=== PATIENT | female | born 1955 | race Caucasian/White ===

== ENCOUNTER 2019-01-24 13:44 | Outpatient (CLI) | payer BC ==
[~2019-01-24 13:44] MED LIST: LOPE2CAP PO; ONDA4TAB6 PO; ONDA8TAB6 PO; PANT-47 PO
[2019-01-24 14:18] LABS: BASOPHILS # (AUTO) 0.1 X10'3 (0-0.2); BASOPHILS % (AUTO) 1.1 % (0-1); EOSINOPHILS # (AUTO) 0.6 X10'3 (0-0.9); EOSINOPHILS % (AUTO) 6.6 % (0-6); HEMATOCRIT 41.2 % (35.0-45.0); LYMPHOCYTES # (AUTO) 2.8 X10'3 (1.1-4.8); LYMPHOCYTES % (AUTO) 33.1 % (21-51); MEAN CORPUSCULAR HEMOGLOBIN 30.4 PG (27.0-31.0); MEAN CORPUSCULAR HGB CONC 33.9 g/dL (33.0-36.5); MEAN CORPUSCULAR VOLUME 89.8 FL (78-98); MEAN PLATELET VOLUME 8.1 FL (7.4-10.4); MONOCYTES # (AUTO) 0.5 X10'3 (0-0.9); MONOCYTES % (AUTO) 6.3 % (2-12); NEUTROPHILS # (AUTO) 4.5 X10'3 (1.8-7.7); NEUTROPHILS % (AUTO) 52.9 % (42-75); PLATELET COUNT 294 X10'3 (140-440); RED BLOOD COUNT 4.59 X10'6 (4.20-5.60); RED CELL DISTRIBUTION WIDTH 14.7 % (11.5-14.5); WHITE BLOOD COUNT 8.5 X10'3 (4.5-11.0)
[2019-01-24 14:34] LABS: ALANINE AMINOTRANSFERASE 34 U/L (12-78); ALBUMIN 3.9 G/DL (3.4-5.0); ALKALINE PHOSPHATASE 108 IU/L (46-116); ANION GAP 12 (8-16); ASPARTATE AMINO TRANSFERASE 20 U/L (10-37); BILIRUBIN,TOTAL 0.3 MG/DL (0.1-1.0); BLOOD UREA NITROGEN 19 MG/DL (7-18); BUN/CREATININE RATIO 28.8 (6.6-38.0); CALCIUM 9.3 MG/DL (8.5-10.1); CHLORIDE 104 MMOL/L (99-107); CREATININE 0.66 MG/DL (0.40-0.90); GLUCOSE 131 MG/DL (70-104); SODIUM 141 MMOL/L (135-145); TOTAL CARBON DIOXIDE 24.8 MMOL/L (24-32); eGFR 90 ML/MIN
[2019-01-24 14:37] LABS: PARTIAL THROMBOPLASTIN TIME 25 SECONDS (22-32)
[2019-01-24 15:59] LABS: PLATELET FUNCTION (ADP) 71 SECONDS (63-104)
== END 2019-01-24 23:59 | disposition home or self-care (01) ==
LOC: LAB 13:44
PROVIDERS: ATTEND Otolaryngology
DX: D69.1 Qualitative platelet defects (principal); I10 Essential (primary) hypertension; M19.90 Unspecified osteoarthritis, unspecified site
CPT/HCPCS: 36415; 80053; 85025; 85576; 85610; 85730

== ENCOUNTER 2021-06-07 08:37 | Emergency (ER) | payer BC ==
[~2021-06-07] VITALS: Ht 152.4 cm; Wt 90.0 kg
[2021-06-07 09:07] LABS: BASOPHILS % (AUTO) 0.4 % (0-1); EOSINOPHILS # (AUTO) 0.4 X10'3 (0-0.9); EOSINOPHILS % (AUTO) 3.1 % (0-6); HEMATOCRIT 41.3 % (35.0-45.0); LYMPHOCYTES # (AUTO) 2.7 X10'3 (1.1-4.8); LYMPHOCYTES % (AUTO) 23.8 % (21-51); MEAN CORPUSCULAR HEMOGLOBIN 29.7 PG (27.0-31.0); MEAN CORPUSCULAR HGB CONC 33.8 g/dL (33.0-36.5); MEAN CORPUSCULAR VOLUME 87.8 FL (78-98); MONOCYTES % (AUTO) 9.1 % (2-12); NEUTROPHILS # (AUTO) 7.2 X10'3 (1.8-7.7); NEUTROPHILS % (AUTO) 63.6 % (42-75); PLATELET COUNT 301 X10'3 (140-440); RED CELL DISTRIBUTION WIDTH 14.2 % (11.5-14.5); WHITE BLOOD COUNT 11.3 X10'3 (4.5-11.0)
[2021-06-07 09:16] LABS: ALANINE AMINOTRANSFERASE 45 U/L (12-78); ALBUMIN 3.7 G/DL (3.4-5.0); ALBUMIN/GLOBULIN RATIO 0.9 (1.1-1.5); ALKALINE PHOSPHATASE 105 IU/L (46-116); ANION GAP 9 (8-16); ASPARTATE AMINO TRANSFERASE 30 U/L (10-37); BILIRUBIN,TOTAL 0.3 MG/DL (0.1-1.0); BLOOD UREA NITROGEN 22 MG/DL (7-18); BUN/CREATININE RATIO 39.3 (6.6-38.0); CALCIUM 8.7 MG/DL (8.5-10.1); CHLORIDE 109 MMOL/L (99-107); CREATININE 0.56 MG/DL (0.40-0.90); GLUCOSE 144 MG/DL (70-104); LIPASE 65 U/L (73-393); POTASSIUM 3.2 MMOL/L (3.5-5.1); SODIUM 141 MMOL/L (135-145); TOTAL CARBON DIOXIDE 22.6 MMOL/L (24-32); TOTAL PROTEIN 7.7 G/DL (6.4-8.2); eGFR > 90 ML/MIN
[2021-06-07 09:20] LABS: COLOR,URINE YELLOW (Yellow); GLUCOSE, URINE NEGATIVE (Neg); KETONES,URINE NEGATIVE (Neg); LEUKOCYTE ESTERASE ,URINE SMALL (Neg); NITRITES, URINE NEGATIVE (Neg); OCCULT BLOOD,URINE SMALL (Neg); PH,URINE 5.5 (4.8-8.0); PROTEIN,URINE TRACE mg/dl (Neg); UROBILINOGEN,URINE 0.2 E.U/dL (0.2-1.0)
[2021-06-07 09:21] LABS: URINE HCG NEGATIVE (NEG)
[2021-06-07 09:25] LABS: CLARITY,URINE SLIGHTLY CLOUDY (Clear); UA COLLECTION TYPE CLN CATCH MIDSTREAM
[2021-06-07] MEDS ORDERED: ondansetron/PF 4mg/2ml inj IV ONE (09:25)
[2021-06-07] MEDS ORDERED: normal saline 1000ML IV soln IVB ONE (09:25)
[2021-06-07 09:27] LABS: RBC,URINE 0-2 /HPF (0-2); WBC,URINE 20-30 /HPF (0-4)
[2021-06-07 09:28] LABS: BACTERIA,URINE 1+ /HPF (Neg); MUCUS STRANDS FEW /LPF (Neg)
[2021-06-07 09:29] LABS: SQUAMOUS EPITHELIAL CELL,UR MANY /LPF (FEW)
[2021-06-07] MEDS ORDERED: iohexol 300mg/ml 100ml inj. ONE (09:32)
[2021-06-07] MEDS ORDERED: ONDA-103 PO (10:35)
[2021-06-07 11:48] VITALS: BP 126/50
== END 2021-06-07 11:48 | disposition home or self-care (01) ==
LOC: ER 08:40
DX: R19.7 Diarrhea, unspecified (principal); R10.84 Generalized abdominal pain; R11.2 Nausea with vomiting, unspecified; I10 Essential (primary) hypertension
CPT/HCPCS: 36415; 74177; 80053; 81001; 81025; 83690; 85025; 96361; 96374; 99285; J2405; J7030; Q9967

== ENCOUNTER 2022-02-02 12:41 | Emergency (ER) | payer BC, SELFPAY ==
[~2022-02-02] VITALS: Ht 152.4 cm; Wt 108.0 kg
[~2022-02-02 12:41] MED LIST changes: +ONDA-103 PO
[2022-02-02 13:52] VITALS: BP 155/81
[2022-02-02] MEDS ORDERED: HYDROcodone/acetaminophen 10/325mg tab PO ONE (16:46)
[2022-02-02] MEDS ORDERED: ketorolac trometh inj. 60 MG/2 ML VIAL IM ONE (16:48)
[2022-02-02] MEDS ORDERED: HYDR-3972 PO (16:48)
[2022-02-02] MEDS ORDERED: IBUP-1986 PO (16:48)
[2022-02-02] MEDS ORDERED: ONDA4TAB12 PO (17:19)
[2022-02-02] MEDS ORDERED: ondansetron 4mg rapidly disintigrating tab PO ONE (17:20)
== END 2022-02-02 18:24 | disposition home or self-care (01) ==
LOC: ER 12:41
DX: Z04.3 Encounter for examination and observation following other accident (principal); R07.89 Other chest pain; I10 Essential (primary) hypertension; M19.90 Unspecified osteoarthritis, unspecified site; Z90.49 Acquired absence of other specified parts of digestive tract; Z98.51 Tubal ligation status; W18.2XXA Fall in (into) shower or empty bathtub, initial encounter; Y93.89 Activity, other specified; Y92.89 Other specified places as the place of occurrence of the external cause; Y99.8 Other external cause status
CPT/HCPCS: 71101; 96372; 99284; J1885

== ENCOUNTER 2022-08-30 13:17 | Emergency (ER) | payer BC, SELFPAY ==
[~2022-08-30] VITALS: Ht 152.4 cm; Wt 108.6 kg
[~2022-08-30 13:17] MED LIST changes: +IBUP-1986 PO; +ONDA4TAB12 PO
[2022-08-30 13:20] VITALS: BP 138/72
[2022-08-30] MEDS ORDERED: METH4TAB81 PO (14:21)
[2022-08-30] MEDS ORDERED: TRIA15CR61 TP (14:21)
== END 2022-08-30 14:31 | disposition home or self-care (01) ==
LOC: ER 13:17
DX: R21 Rash and other nonspecific skin eruption (principal); I10 Essential (primary) hypertension; M19.90 Unspecified osteoarthritis, unspecified site; Z90.49 Acquired absence of other specified parts of digestive tract; Z98.51 Tubal ligation status
CPT/HCPCS: 99283

== ENCOUNTER 2023-01-15 21:07 | Emergency (ER) | payer BC, MEDICARE, OTHER, SELFPAY ==
[~2023-01-15] VITALS: Ht 152.4 cm; Wt 108.5 kg
[~2023-01-15 21:07] MED LIST changes: +METH4TAB81 PO
[2023-01-15 21:41] LABS: BASOPHILS # (AUTO) 0.1 X10'3 (0-0.2); EOSINOPHILS # (AUTO) 0.6 X10'3 (0-0.9); EOSINOPHILS % (AUTO) 5.2 % (0-6); HEMATOCRIT 40.7 % (35.0-45.0); HEMOGLOBIN 13.8 g/dl (12.0-16.0); LYMPHOCYTES # (AUTO) 3.6 X10'3 (1.1-4.8); LYMPHOCYTES % (AUTO) 31.9 % (21-51); MEAN CORPUSCULAR HEMOGLOBIN 30.4 PG (27.0-31.0); MEAN CORPUSCULAR HGB CONC 33.9 g/dL (33.0-36.5); MEAN CORPUSCULAR VOLUME 89.9 FL (78-98); MEAN PLATELET VOLUME 7.9 FL (7.4-10.4); MONOCYTES # (AUTO) 0.7 X10'3 (0-0.9); NEUTROPHILS # (AUTO) 6.3 X10'3 (1.8-7.7); NEUTROPHILS % (AUTO) 55.9 % (42-75); PLATELET COUNT 314 X10'3 (140-440); RED BLOOD COUNT 4.52 X10'6 (4.20-5.60); RED CELL DISTRIBUTION WIDTH 13.9 % (11.5-14.5); WHITE BLOOD COUNT 11.3 X10'3 (4.5-11.0)
[2023-01-15 21:52] LABS: ALANINE AMINOTRANSFERASE 42 U/L (12-78); ALBUMIN 4.2 G/DL (3.4-5.0); ALKALINE PHOSPHATASE 100 IU/L (46-116); ANION GAP 9 (8-16); ASPARTATE AMINO TRANSFERASE 28 U/L (10-37); BILIRUBIN,TOTAL 0.3 MG/DL (0.1-1.0); BLOOD UREA NITROGEN 26 MG/DL (7-18); BUN/CREATININE RATIO 38.2 (10.0-20.0); CALCIUM 10.4 MG/DL (8.5-10.1); CHLORIDE 101 MMOL/L (99-107); CREATININE 0.68 MG/DL (0.40-0.90); GLUCOSE 131 MG/DL (70-104); POTASSIUM 4.3 MMOL/L (3.5-5.1); SODIUM 136 MMOL/L (135-145); TOTAL CARBON DIOXIDE 26.1 MMOL/L (24-32); TOTAL PROTEIN 8.4 G/DL (6.4-8.2); eCRCL 58 ML/MIN; eGFR 86 ML/MIN
[2023-01-15 21:59] LABS: PRO BRAIN NATRIURETIC PEPTIDE < 30 PG/ML (0-125)
[2023-01-15 22:09] LABS: LIPASE 29 U/L (16-77)
[2023-01-15] MEDS ORDERED: ondansetron/PF 4mg/2ml inj IM ONE (22:30)
[2023-01-15] MEDS ORDERED: diazepam inj 5 MG/ML inj. IM ONE (22:30)
[2023-01-15] MEDS ORDERED: diphenhydrAMINE 50 mg/ml inj IM ONE (22:30)
--- NOTE | 2023-01-15 22:48 | NUR ---
PT SEEN, TX AND D/C FROM TRIAGE BY PROVIDER. NO RN ASSIGNED.
--- NOTE | 2023-01-15 22:48 | NUR ---
PER RPOVIDER, NO UA NEEDED.
[2023-01-15 22:51] VITALS: BP 133/73; PULSE 90; RESP 18; TEMP 98; O2SAT 98
== END 2023-01-15 22:52 | disposition home or self-care (01) ==
LOC: ER 21:08
DX: R10.13 Epigastric pain (principal); R06.02 Shortness of breath; R11.2 Nausea with vomiting, unspecified; F41.9 Anxiety disorder, unspecified; I10 Essential (primary) hypertension; E03.9 Hypothyroidism, unspecified; Z90.49 Acquired absence of other specified parts of digestive tract; Z79.899 Other long term (current) drug therapy
CPT/HCPCS: 36415; 71045; 80053; 83690; 83880; 84484; 85025; 93005; 96372; 99285; J1200; J2405; J3360

== ENCOUNTER → 2025-02-02 | Emergency (ER) | payer BC, OTHER ==
[~2025-02-02] VITALS: Ht 152.4 cm; Wt 78.0 kg
[~2025-02-02] MED LIST changes: +DIF150T PO; +ONDA-243 PO; -ONDA4TAB12 PO
[2025-02-02 02:19] VITALS: BP 158/80; PULSE 94; RESP 15; O2SAT 98
--- NOTE | 2025-02-02 03:50 | Physician Documentation ---
History of Present Illness ~ Chief Complaint: See Chief Complaint Stated Complaint: YEAST INFECTION Time Seen by MD: 03:43 Primary Medical Doctor: Clayton dugan in [facility] Patient presents to the emergency room with chief complaint of yeast infection. She was denies dysuria. Distant history of yeast infection. No fevers. No new sexual partners. Medication Reconciliation Allergies: Coded Allergies: No Known Allergies (Unverified , 06/08/16) Scheduled Ibuprofen (Ibuprofen), 1 TAB PO Q8H Methylprednisolone (Medrol Dosepak), 4 MG PO DAILY Ondansetron HCl (Ondansetron HCl), 1 TAB PO Q6H PRN Ondansetron Hcl (Zofran), 1 TAB PO Q8H Pantoprazole Sodium (PROTONIX tablet), 1 TAB PO DAILY Scheduled PRN Loperamide Hcl (Loperamide), 2 CAP PO Q6H PRN for diarrhea ONDANSETRON ODT 4mg tablet (Ondansetron Odt), 1 TABLET PO Q6H PRN for nausea/vomiting Ondansetron Hcl (Zofran), 1 TAB PO Q6H PRN for nausea Past Medical History Past Medical History: Hypertension, Thyroid (unspecified), Arthritis Past Surgical History: cholecystectomy, tubal ligation Drug Use: none Lives with: Family Lives In: Home Occupation: employed Review of Systems ROS All review of systems negative except as per [facility] Physical Exam Vital Signs: Temperature: 97.6, Source: Temporal, Heart Rate: 94, Respiratory Rate: 15, BP: 158/80, Pulse Oximetry: 98, Weight: 78.000 Physical Exam General: Patient is awake, alert, oriented x4 in no acute distress Head: Normocephalic and atraumatic. Eyes: Conjunctival normal. EOMI. PERRL. ENT: Mucous membranes moist. Neck: Supple, trachea is midline. Chest: Clear to auscultation bilaterally without rales, rhonchi, or wheezes. There is no accessory muscle use or retractions. Cardiac: RRR without murmurs, gallops, or rubs. Abd: Soft, nondistended, nontender, with normoactive bowel sounds. No guarding, rebound, or rigidity. : Deferred Progress Results/Orders Results/Orders Orders - FERDINAND BURRELL MD Fluconazole Tablet (Diflucan Tablet) (02/02/25 03:50) Vital Signs 02/02/25 02:19 Temp 97.6 Pulse 94 Resp 15 B/P (MAP) 158/80 Pulse Ox 98 Medical Decision Making Additional information obtaine: N/A Findings Patient presents to the emergency room chief complaint of yeast infection. Differentials include but are not limited to yeast infection, pelvic inflammator y disease, urinary tract infection, STD. Patient has been agonist with her and he had not feel patient is suffering from an STD. She denies any dysuria and he had not feel urinalysis is necessary. Given history symptoms likely secondary to yeast infection. Offered physical exam however she declined. We will treat for yeast infection with ER precautions discussed. Vital signs stable Urinary Diff Dx:Considerations: Include: AAA, , Aortic dissection, Appendicitis, Bowel obstruction, Cholelithiasis, Choleangitis, DJD, Ectopic , Hepatitis, HNP, Impaction, Intrauterine , Musculoskeletal pain, Ovarian torsion, Pancreatitis, PID, Post-Op complication, Pyelonephritis, Renal failure, Strain, Urinary Obstruction, Urolithiasis, Urinary retention, UTI, Vaginitis, Other Genital Diff Dx:Considerations: Include: -Complete, - Incomplete, -Inevitable, Ablortion-Missed, -Threatened, Abruptio placentae, Bartholin abscess, Bartholin cyst, Blood loss anemia, Constipation, Cervicitis, Dsymenorrhea, Ectopic , Foreign body, Hormonal, Hid radenitis suppurativa, Intrauterine , Menorrhagia, Menometrorrhagia, Menstrual bleeding, Myomatous uterus, Perianal abscess, Physiologic discharge, Pinworms, PID, Placenta previa, , Precipitous Hct, Trauma, UTI, Vaginitis(osis)-Atrophic, Vaginitis, Vaginitis(osis)-Bacterial, Vaginitis(osis)- Candidal, Vaginitis(osis)-Contact, Vaginitis(osis)-Herpes, Vaginitis(osis)- Trich., Other Departure Disposition: 01 HOME / SELF CARE / HOMELESS Impression: Primary Impression: Yeast infection Condition: Stable Discharge Instructions: Vaginal Yeast Infection, Adult Additional Instructions: Return for worsening of symptoms or fevers. Signature Scribe Signature: No scribe Attestation: The note accurately reflects work and decisions made by me.Ferdinand Burrell MD 02/02/25 03:50 FERDINAND BURRELL MD Feb 02, 2025 03:50
[2025-02-02 04:59] VITALS: TEMP 97.6
== END | disposition home or self-care (01) ==
LOC: ER 01:51
DX: B37.9 Candidiasis, unspecified (principal); I10 Essential (primary) hypertension; M19.90 Unspecified osteoarthritis, unspecified site; Z90.49 Acquired absence of other specified parts of digestive tract; Z98.51 Tubal ligation status; Z79.899 Other long term (current) drug therapy
CPT/HCPCS: 99283

== ENCOUNTER 2025-02-28 13:10 | Emergency (ER) | payer BC ==
[~2025-02-28] VITALS: Ht 152.4 cm; Wt 113.3 kg
[2025-02-28 13:29] VITALS: TEMP 96.6
[2025-02-28 13:57] LABS: LEUKOCYTE ESTERASE ,URINE SMALL (Neg); NITRITES, URINE POSITIVE (Neg); OCCULT BLOOD,URINE TRACE-INTACT (Neg); UA COLLECTION TYPE CLN CATCH MIDSTREAM
[2025-02-28 13:59] LABS: MEAN PLATELET VOLUME 8.3 FL (7.4-10.4); RED CELL DISTRIBUTION WIDTH 13.9 % (11.5-14.5)
[2025-02-28 14:04] LABS: MUCUS STRANDS FEW /LPF (Neg); SQUAMOUS EPITHELIAL CELL,UR FEW /LPF (FEW)
[2025-02-28 14:12] LABS: CREATININE 0.83 MG/DL (0.40-0.90); TOTAL CARBON DIOXIDE 26.3 MMOL/L (24-32); eCRCL 45 ML/MIN; eGFR 68 ML/MIN
[2025-02-28] MEDS ORDERED: iohexol 300mg/ml 100ml inj. ONE (16:44)
--- NOTE | 2025-02-28 16:49 | Physician Documentation ---
History of Present Illness ~ Chief Complaint: Flank Pain Stated Complaint: KIDNEY PAIN Time Seen by MD: 15:31 Primary Medical Doctor: Clayton dugan in Mode of Arrival: Ambulatory HPI Patient is seen today with complaints of having been treated for a suspected yeast infection about a week ago. She states that time she had some burning in her vaginal area but denies any vaginal discharge or cottage cheeselike discharge or pruritus. Patient states she did not have a urinalysis performed at that time but states her symptoms have persisted and have begin moving up her right flank and now she has significant right flank pain. She denies any fevers or chills complains of persistent dysuria. She has no other concern or complaint at this time. Medication Reconciliation Allergies: Coded Allergies: No Known Allergies (Unverified , 02/28/25) Scheduled Fluconazole* (Diflucan*), 1 TAB PO as directed Ibuprofen (Ibuprofen), 1 TAB PO Q8H Methylprednisolone (Medrol Dosepak), 4 MG PO DAILY Ondansetron HCl (Ondansetron HCl), 1 TAB PO Q6H PRN Ondansetron Hcl (Zofran), 1 TAB PO Q8H Pantoprazole Sodium (PROTONIX tablet), 1 TAB PO DAILY Scheduled PRN Loperamide Hcl (Loperamide), 2 CAP PO Q6H PRN for diarrhea ONDANSETRON ODT 4mg tablet (Ondansetron Odt), 1 TABLET PO Q6H PRN for nausea/vomiting Ondansetron Hcl (Zofran), 1 TAB PO Q6H PRN for nausea Past Medical History Past Medical History: Hypertension, Thyroid (unspecified), Arthritis Past Surgical History: cholecystectomy, tubal ligation Drug Use: none Lives with: Family Lives In: Home Occupation: employed Review of Systems Constitutional: Denies: chills, fever, weakness Eyes: Denies: pain, blurred vision ENT: Denies: ear pain, nose pain, throat pain, mouth pain Respiratory: Denies: cough, shortness of breath Cardiovascular: Denies: chest pain, palpitations Gastrointestinal: Denies: abdominal pain, nausea, vomiting Genitourinary: Denies: burning, dysuria Female Genitalia: Denies: vaginal discharge, pelvic pain Neurological: Denies: headache, dizziness Musculoskeletal: Denies: pain, swelling Integumentary: Denies: rash, lesions Allergic/Immunologic: Denies: hives, itching Hematologic/Lymphatic: Denies: no symptoms reported Psychiatric: Denies: depression, anxiety Physical Exam Vital Signs: Temperature: 96.6, Source: Temporal, Heart Rate: 83, Respiratory Rate: 18, BP: 161/70, Pulse Oximetry: 96, Weight: 113.300 Oxygen Flow Rate: 0 Physical Exam General: Awake and Alert, no acute distress. HEENT: Conjunctiva pink, Sclera clear, Mucus Membranes moist. Neck: Supple without masses and tenderness. Resp: Unlabored. Lungs clear to auscultation bilaterally. Heart: Regular Rate and rhythm, normal S1 and S2 without murmur, rub or gallop. Abdomen: Abdomen is soft, nondistended, nontender, patient does have sign ificant CVA tenderness on the right side only. No rebound tenderness and no guarding. Extremities: No cyanosis,clubbing or edema. Skin: Warm and Dry. Progress Results/Orders Results/Orders Orders - HERNAN MCCORMICK PAC Saline Lock (02/28/25 ) Ct Abdomen Pelvis (02/28/25 16:35) Completed Orders - HERNAN MCCORMICK PAC Morphine 4mg/Ml Inj. (Morphine Inj.) (02/28/25 16:07) Ondansetron Inj. (Zofran 4mg/2ml Vial) (02/28/25 16:07) Acetaminophen 1,000mg/100ml Iv (Ofirmev (02/28/25 16:07) Ketorolac Trometh 15mg/Ml Vial (Toradol (02/28/25 16:07) Normal Saline 1000ml (0.9% Sodium Chlori (02/28/25 16:11) Ceftriaxone/[id number] 1gm (Rocephin 1 (02/28/25 16:11) Ct Abdomen Pelvis (02/28/25 16:35) Iohexol 300mg/Ml 100ml Inj. (Omnipaque-3 (02/28/25 16:44) Medications Received in ER Medications (Trade) Dose Ordered Sig/Vance Route PRN Reason Start Time Stop Time Status Last Admin Dose Admin (morphine inj.) 4 mg ONCE STAT IV 02/28/25 16:07 02/28/25 16:13 DC 02/28/25 17:48 4 MG (Zofran 4mg/2ml vial) 4 mg ONCE STAT IV 02/28/25 16:07 02/28/25 16:13 DC 02/28/25 17:11 4 MG (Toradol injection) 15 mg ONCE STAT IV 02/28/25 16:07 02/28/25 16:13 DC 02/28/25 17:16 15 MG Acetaminophen 100 ml @ 400 mls/hr ONCE STAT IV 02/28/25 16:07 02/28/25 16:21 DC 02/28/25 17:07 400 MLS/HR Sodium Chloride 1,000 ml @ 1,000 mls/hr ONCE STAT IV 02/28/25 16:11 02/28/25 17:10 DC 02/28/25 17:19 1,000 MLS/HR Ceftriaxone Sodium 50 ml @ 100 mls/hr ONCE STAT IV 02/28/25 16:11 02/28/25 16:40 DC 02/28/25 17:19 100 MLS/HR Vital Signs 02/28/25 02/28/25 02/28/25 02/28/25 13:29 15:24 15:34 16:05 Temp 96.6 Pulse 94 83 86 Resp 17 16 18 16 B/P (MAP) 129/67 161/70 (100) 157/71 (99) Pulse Ox 100 96 95 O2 Flow Rate 0 0 0 02/28/25 02/28/25 02/28/25 17:16 17:28 17:48 Pulse 77 Resp 18 16 17 B/P (MAP) 119/55 (76) Pulse Ox 98 O2 Flow Rate 0 Laboratory Tests Test 02/28/25 13:32 02/28/25 13:44 Urine Specimen Description Cln catch midstream Urine Color Yellow Urine Clarity Slightly cloudy Urine pH 6.0 Urine Specific [place] 1.015 Urine Protein Negative Urine Glucose (UA) Negative Urine Ketones Negative Urine Occult Blood Trace-intact Urine Nitrite Positive H Urine Bilirubin Negative Urine Urobilinogen 0.2 Urine Leukocyte Esterase Small H Urine RBC 0-2 Urine WBC 5-10 H Urine Squamous Epithelial Cells Few Urine Transitional Epithelial Cells Few Urine Bacteria 4+ Urine Mucus Few Urine Culture Indicated Indicated Volume Urine Centrifuged 10 ml Urine Comment White Blood Count 9.2 Red Blood Count 4.18 L Hemoglobin 12.9 Hematocrit 38.4 Mean Corpuscular Volume 92.0 Mean Corpuscular Hemoglobin 31.0 Mean Corpuscular Hemoglobin Concent 33.7 Red Cell Distribution Width 13.9 Platelet Count 312 Mean Platelet Volume 8.3 Neutrophils (%) (Auto) 57.5 Lymphocytes (%) (Auto) 28.8 Monocytes (%) (Auto) 7.0 Eosinophils (%) (Auto) 6.0 Basophils (%) (Auto) 0.7 Neutrophils # (Auto) 5.3 Lymphocytes # (Auto) 2.6 Monocytes # (Auto) 0.6 Eosinophils # (Auto) 0.6 Basophils # (Auto) 0.1 CBC Comment Sodium Level 139 Potassium Level 4.0 Chloride Level 103 Carbon Dioxide Level 26.3 Anion Gap 10 Blood Urea Nitrogen 27 H Creatinine 0.83 Estimated GFR/1.73 m2 68 BUN/Creatinine Ratio 32.5 H Glucose Level 132 H Calcium Level 9.0 Total Bilirubin 0.3 Aspartate Amino Transf (AST/SGOT) 28 Alanine Aminotransferase (ALT/SGPT) 43 Alkaline Phosphatase 102 Total Protein 8.4 H Albumin 4.2 Globulin 4.2 Albumin/Globulin Ratio 1.0 L Lipase 52 Chemistry Comments Microbiology Date/Time Source Procedure Growth Status 02/28/25 14:04 Urine Clean Catch Midstream Urine Culture - Preliminary Culture received. Resulted EKG/XRAY/CT/US/VASC/MRI CT : Impression CAT SCAN Patient: JEANCARLOS BUSTOS Medical Record: [id number] [facility] : 1955, Age: 70 Sex: Female Location: ER Patient Status: REG ER Service Date/Time: 02/28/251634 Ordering Physician: HERNAN MCCORMICK PAC Exam: CT ABDOMEN PELVIS COMPUTERIZED TOMOGRAPHY ABDOMEN AND PELVIS WITH CONTRAST REASON FOR EXAM: right flank pain COMPARISON: CT ABDOMEN PELVIS on DOS: 06/07/21 TECHNIQUE: The exam was performed on a Multidetector scanner. Spiral scans were acquired from the diaphragm to the symphysis pubis after administration of IV contrast. 2-D coronal and sagittal reformatted images were provided. Radiation optimization: All CT scans at this facility use at least one of these dose optimization techniques: Automated exposure control mA and/or kV adjustment per patient size (includes targeted exams where dose is matched to clinical indication) or iterative reconstruction. CONTRAST ADMINISTRATION: 100 mL omnipaque 300 intravenously RADIATION DOSE: CTDI: 34 mGy DLP: 2033 mGy-cm FINDINGS: The visualized lung bases are grossly clear. There is no pleural effusion. There is no pericardial effusion. There are extensive coronary artery calcifications. The spleen is not enlarged. The liver is within normal limits for size and contour. Portal vein is patent. The gallbladder is surgically absent. The pancreas is unremarkable. The adrenal glands appear normal. The kidneys enhance symmetrically. There is no hydronephrosis of either kidney. No renal, ureteral, or bladder calculus is identified. No solid renal mass is identified. There is no abdominal aortic aneurysm. There is extensive atherosclerosis. The urinary bladder is decompressed but appears grossly unremarkable. The uterus and ovaries are within normal limits. No free fluid is identified in the abdomen or pelvis. There is mild sigmoid diverticulosis without evidence of diverticulitis. The colonic stool burden is small. The appendix is normal. There is a midline ventral supraumbilical hernia with a 2.5 cm fascial defect containing fat. No acute osseous abnormality is identified. There is severe degenerative change throughout the lumbar spine. There is severe joint space narrowing and osteophyte formation at the right hip. IMPRESSION: No hydronephrosis of either kidney. No collecting system calculus identified. No evidence of bowel obstruction. Normal appendix. Extensive atherosclerosis and coronary artery disease. Prior cholecystectomy. Supraumbilical midline ventral hernia with a 2.5 cm fascial defect containing fat. Electronically Signed by:RAYSHAWN MEDINA MD Date & Time: 02/28/251756 Dictated by: RAYSHAWN MEDINA MD Dictation date and time: 02/28/251756 Primary Care Provider: NO PRIMARY CARE PROVIDER cc: HERNAN MCCORMICK PAC ~ Medical Decision Making Additional information obtaine: N/A Findings Patient is seen today with complaints of having been treated for a suspected yeast infection about a week ago. She states that time she had some burning in her vaginal area but denies any vaginal discharge or cottage cheeselike discharge or pruritus. Patient states she did not have a urinalysis performed at that time but states her symptoms have persisted and have begin moving up her right flank and now she has significant right flank pain. She denies any fevers or chills complains of persistent dysuria. She has no other concern or complaint at this time. Patient did have CT scan that showed no sign of pyelonephritis. Patient's labs are largely reassuring. Patient's urinalysis did show sign of urinary tract inf ection was sent for culture. Patient is feeling much better after IV fluids and IV Tylenol and Toradol 15 mg and Rocephin 1 g and morphine 4 mg and Zofran 4 mg IV. Prescription of Cipro 500 mg one tab twice a day for seven days sent to patient's pharmacy. Patient will follow up in 2-3 days if no better or as needed sooner for re-evaluation. Return to ED with any worsening, concerning or changing symptoms. Urinary Diff Dx:Considerations: Include: Musculoskeletal pain, Pyelonephritis, Urinary retention, UTI Genital Diff Dx:Considerations: Unlikely: -Complete, -Incomplete, -Inevitable, Ablortion-Missed, -Threatened, Abruptio placentae, Bartholin abscess, Bartholin cyst, Blood loss anemia, Constipation, Cervicitis, Dsymenorrhea, Ectopic , Foreign body, Hormonal, Hidradenitis suppurativa, Intrauterine , Menorrhagia, Menometrorrhagia, Menstrual bleeding, Myomatous uterus, Perianal abscess, Physiologic discharge, Pinworms, PID, Placenta previa, , Precipitous Hct, Trauma, UTI, Vaginitis(osis)-Atrophic, Vaginitis, Vaginitis(osis)-Bacteria l, Vaginitis(osis)-Candidal, Vaginitis(osis)-Contact, Vaginitis(osis)-Herpes, Vaginitis(osis)-Trich., Other Departure Disposition: 01 HOME / SELF CARE / HOMELESS Impression: Primary Impression: Acute urinary tract infection Additional Impression: Acute pyelonephritis Condition: Improved Discharge Instructions: Pyelonephritis, Adult Additional Instructions: Patient did have CT scan that showed no sign of pyelonephritis. Patient's labs are largely reassuring. Patient's urinalysis did show sign of urinary tract infection was sent for culture. Patient is feeling much better after IV fluids and IV Tylenol and Toradol 15 mg and Rocephin 1 g and morphine 4 mg and Zofran 4 mg IV. Prescription of Cipro 500 mg one tab twice a day for seven days sent to patient's pharmacy. Patient will follow up in 2-3 days if no better or as needed sooner for re-evaluation. Return to ED with any worsening, concerning or changing symptoms. Referrals: NO PRIMARY CARE PROVIDER (PCP) Prescriptions Ciprofloxacin HCl (Ciprofloxacin HCl) 500 Mg Tab 1 TAB PO Q12H for 7 Days, #14 TAB Prov: HERNAN MCCORMICK 02/28/25 Ibuprofen (Ibuprofen) 600 Mg Tablet 1 TAB PO Q8H for pain for 10 Days, #30 TAB 0 Refills with food Prov: HERNAN MCCORMICK 02/28/25 Signature Scribe Signature: No scribe Attestation: No scribe HERNAN MCCORMICK Feb 28, 2025 16:49
[2025-02-28] MEDS: acetaminophen 1,000mg/100ml IV 100 ML IV STA (17:07)
[2025-02-28] MEDS: ondansetron/PF 4mg/2ml inj IV STA (17:11)
[2025-02-28] MEDS: ketorolac trometh 15mg/ml vial 15 MG/ML ML IV STA (17:16)
[2025-02-28] MEDS: normal saline 1000ml 1,000 ML IV STA (17:19)
[2025-02-28] MEDS: CefTRIAXone/D5W-Rocephin 1gm 50 ML IV STA (17:19)
[2025-02-28] MEDS: morphine 4 MG/ML inj SYRINge IV STA (17:48)
--- NOTE | 2025-02-28 18:00 | RADIOLOGY REPORT ---
COMPUTERIZED TOMOGRAPHY ABDOMEN AND PELVIS WITH CONTRAST REASON FOR EXAM: right flank pain COMPARISON: CT ABDOMEN PELVIS on DOS: 06/07/21 TECHNIQUE: The exam was performed on a Multidetector scanner. Spiral scans were acquired from the diaphragm to the symphysis pubis after administration of IV contrast. 2-D coronal and sagittal reformatted images were provided. Radiation optimization: All CT scans at this facility use at least one of these dose optimization techniques: Automated exposure control mA and/or kV adjustment per patient size (includes targeted exams where dose is matched to clinical indication) or iterative reconstruction. CONTRAST ADMINISTRATION: 100 mL omnipaque 300 intravenously RADIATION DOSE: CTDI: 34 mGy DLP: 2033 mGy-cm FINDINGS: The visualized lung bases are grossly clear. There is no pleural effusion. There is no pericardial effusion. There are extensive coronary artery calcifications. The spleen is not enlarged. The liver is within normal limits for size and contour. Portal vein is patent. The gallbladder is surgically absent. The pancreas is unremarkable. The adrenal glands appear normal. The kidneys enhance symmetrically. There is no hydronephrosis of either kidney. No renal, ureteral, or bladder calculus is identified. No solid renal mass is identified. There is no abdominal aortic aneurysm. There is extensive atherosclerosis. The urinary bladder is decompressed but appears grossly unremarkable. The uterus and ovaries are within normal limits. No free fluid is identified in the abdomen or pelvis. There is mild sigmoid diverticulosis without evidence of diverticulitis. The c olonic stool burden is small. The appendix is normal. There is a midline ventral supraumbilical hernia with a 2.5 cm fascial defect containing fat. No acute osseous abnormality is identified. There is severe degenerative change throughout the lumbar spine. There is severe joint space narrowing and oste ophyte formation at the right hip. IMPRESSION: No hydronephrosis of either kidney. No collecting system calculus identified. No evidence of bowel obstruction. Normal appendix. Extensive atherosclerosis and coronary artery disease. Prior cholecystectomy. Supraumbilical midline ventral hernia with a 2.5 cm fascial defect containing fat.
[2025-02-28] MEDS ORDERED: IBUP600T52 PO (18:18)
[2025-02-28] MEDS ORDERED: CIPR-458 PO (18:18)
[2025-02-28 18:30] VITALS: BP 132/84; PULSE 78; RESP 18; O2SAT 98
== END 2025-02-28 19:13 | disposition home or self-care (01) ==
LOC: ER 13:10
DX: N39.0 Urinary tract infection, site not specified (principal); N10 Acute pyelonephritis; I25.10 Atherosclerotic heart disease of native coronary artery without angina pectoris; I10 Essential (primary) hypertension; M19.90 Unspecified osteoarthritis, unspecified site; Z98.51 Tubal ligation status; Z90.49 Acquired absence of other specified parts of digestive tract; Z79.899 Other long term (current) drug therapy
CPT/HCPCS: 36415; 74177; 80053; 81001; 83690; 85025; 87077; 87088; 87186; 96365; 96375; 99285; J0131; J0696; J1885; J2270; J2405; J7030; Q9967